=== PATIENT | female | born 1960 | race Caucasian/White ===

== ENCOUNTER → 2023-10-05 08:01 | Outpatient (REF) | payer BC, SELFPAY | LOC: HWWDC 08:01 | PROVIDERS: ATTENDING PHYSICIAN Obstetrics & Gynecology Gynecology; FAMILY PHYSICIAN Family Medicine | DX: Z12.31 Encounter for screening mammogram for malignant neoplasm of breast (principal) | CPT/HCPCS: 77063; 77067 ==

== ENCOUNTER 2024-02-28 06:22 | Day surgery (SDC) | payer BC, SELFPAY ==
[2024-02-20 08:38] VITALS: BMI 26.4
[2024-02-28] VITALS (11 sets, daily range): BP systolic 112–126; BP diastolic 61–76; BMI 26.4
[2024-02-28] MEDS: CELEBREX 200 MG PO (08:16)
[2024-02-28] MEDS: TYLENOL 1000 MG PO (08:16)
[2024-02-28] MEDS: NORMOSOL-R 1000 IV (08:17)
== END 2024-02-28 11:58 | disposition home or self-care (01) ==
LOC: SDS 06:22
PROVIDERS: ATTENDING PHYSICIAN Specialist; FAMILY PHYSICIAN Internal Medicine
DX: M75.112 Incomplete rotator cuff tear or rupture of left shoulder, not specified as traumatic (principal); M75.42 Impingement syndrome of left shoulder
CPT/HCPCS: 29827; 29823; 36415; 93005; C1713

== ENCOUNTER → 2024-08-31 12:56 | Outpatient (REF) | payer BC, SELFPAY | LOC: HWRCS 12:56 | PROVIDERS: ATTENDING PHYSICIAN Internal Medicine Cardiovascular Disease; FAMILY PHYSICIAN Internal Medicine | DX: E78.00 Pure hypercholesterolemia, unspecified (principal); Z92.21 Personal history of antineoplastic chemotherapy; Z92.3 Personal history of irradiation | CPT/HCPCS: 93306 ==

== ENCOUNTER → 2024-11-07 08:53 | Outpatient (REF) | payer BC, SELFPAY | LOC: HWWDC 08:53 | PROVIDERS: ATTENDING PHYSICIAN Obstetrics & Gynecology Gynecology; FAMILY PHYSICIAN Internal Medicine | DX: Z12.31 Encounter for screening mammogram for malignant neoplasm of breast (principal) | CPT/HCPCS: 77063; 77067 ==

== ENCOUNTER 2025-03-08 06:52 | Emergency (ER) | payer BC, SELFPAY ==
[2025-03-08 06:54] VITALS: BP 123/74
--- NOTE | 2025-03-08 07:16 | ED.GENMED ---
History of Present Illness
General
Chief Complaint: Abdominal Pain
Source: patient
Exam Limitations: none
Time Seen by Provider: 03/08/25 07:08
Nursing documentation reviewed up to this point in time: agreed with
History of Present Illness
History of Present Illness:
64-year-old female with history of kidney stones, remote history of Hodgkin's lymphoma presents for suprapubic pain. She rates the pain as a 4 out of 10 in severity, noting that it resembles very bad menstrual cramps. The onset of this acute pain
episode was around 2:30 AM. Earlier in the week, the patient noticed pink urine, which led her to suspect a urinary stone, given her history of similar episodes. She denies flank pain, nausea, or vomiting. Initially pain has was across lower abdomen
and into back but now only suprapubic area. The patient has taken 10 milligrams of oxycodone for pain relief, which has helped the pain.
Past History
Past History
ED Past Medical History: Cancer (Hodgkin's Lymphoma 20 yrs ago. Kidney stones)
ED Past Surgical History: Gynecological
Social History
Tobacco: Non-smoker
Alcohol: Occasional
Personal:
Living: with family
Employment: Retired
Review of Systems
Review of Systems
Allergies reviewed?: Yes
All Other Systems: ROS reviewed and negative except as documented in HPI and ROS
Constitutional: Denies fever or chills
ABD/GI: Reports abdominal pain; Denies nausea, vomiting or diarrhea
: Reports other (pink colored urine 2 days ago); Denies dysuria, frequency or difficulty voiding
Phy Exam
Physical Exam
Physical Exam:
GENERAL: No acute distress. A&Ox3.
CONSTITUTIONAL: Afebrile.
EYES: clear, conjunctivae normal
ENMT: moist mucus membranes
RESPIRATORY: Regular respirations, nonlabored, lungs clear.
CARDIOVASCULAR: Regular rate and rhythm, no murmurs, no rubs.
GI: Soft, nontender, normal BS
MUSCULOSKELETAL: Moves with ease. Well perfused.
SKIN: Warm, dry, pink
PSYCH: Normal mood and affect. Well kept, interactive and appropriate
NEUROLOGIC: Awake, alert and oriented. No focal neurological deficits
Course
Orders/Labs/Results
Orders:
Orders
03/08/25 08:02
Complete Blood Count/With Diff Urgent
03/08/25 08:04
Urinalysis Reflex To Culture Urgent
Date Specimen was Collected: 03/08/25
Time Specimen was Collected: 08:01
Urine Microscopic Reflex Cult Urgent
Urine Culture Urgent
LETA Source: U
Specimen Description:
Date Specimen was Collected: 03/08/25
Time Specimen was Collected: 08:01
03/08/25 09:09
CT Abd/pel Without Iv Or Oral Urgent
Comment:
Reason For Exam: lower mid abd pain, hx stones, u/a +RBC
03/08/25 09:37
Comprehensive Metabolic Panel Urgent
03/08/25 09:52
Tamsulosin [Flomax] 0.4 mg PO NOW STA
Abnormal Lab Results
03/08/25 03/08/25 03/08/25
08:02 08:04 09:37
MCH 32.7 H pg
(27.0-31.0)
Absolute Neuts (auto) 8.2 H 10^3/uL
(1.4-6.5)
Absolute Lymphs (auto) 1.0 L 10^3/uL
(1.2-3.4)
Neutrophils % 84.5 H %
(42.2-75.2)
Lymphocytes % 10.2 L %
(20.5-51.1)
BUN 26 H mg/dl
(7-17)
ALT 40 H U/L
(0-35)
Ur Occult Blood Reflex 4+ A
(Negative)
Leukocyte Esterase Rfl 1+ A
(Negative)
Urine RBC 60-70 A /HPF
(0-2)
Urine Bacteria (Reflex) Few A
(Negative)
Urine Albumin (Reflex) 2+ A
(Neg - Trace)
03/08/25 08:02
03/08/25 09:37
Vital Signs
Initial and Last Documented VS:
Initial Vital Signs
Temp Pulse Resp BP Pulse Ox
97.5 F 87 16 123/74 99
03/08/25 06:54 03/08/25 06:54 03/08/25 06:54 03/08/25 06:54 03/08/25 06:54
Last Documented Vital Signs
Temp Pulse Resp BP Pulse Ox
97.5 F 68 16 126/74 99
03/08/25 06:54 03/08/25 10:34 03/08/25 10:34 03/08/25 10:34 03/08/25 07:19
MDM/Problems Addressed
Differential Diagnosis Includes:
1. Nephrolithiasis (kidney stones)
2. Urinary tract infection
3. Gynecological issues (e.g., ovarian cysts)
4. Gastrointestinal conditions such as diverticulitis
5. Appendicitis
6. Pyelonephritis
7. Colitis
MDM/Problems Addressed:
64-year-old female with history of kidney stones, remote history of Hodgkin's lymphoma presents for suprapubic pain. She rates the pain as a 4 out of 10 in severity, noting that it resembles very bad menstrual cramps. The onset of this acute pain
episode was around 2:30 AM. Earlier in the week, the patient noticed pink urine, which led her to suspect a urinary stone, given her history of similar episodes. She denies flank pain, nausea, or vomiting. Initially pain has was across lower abdomen
and into back but now only suprapubic area. The patient has taken 10 milligrams of oxycodone for pain relief, which has helped the pain.
Afebrile, NAD
9:45 a.m.
CBC with no clinically significant abnormality
CMP: Hemolyzed twice, result pending
U/A: No infection
CT abdomen pelvis radiology report read: 1. Mild to moderate LEFT hydronephrosis and hydroureter secondary to a 6.2 mm calculus within the distal left ureter. Mild associated fat stranding about the left kidney and left renal pelvis.
2. Multiple additional left-sided intrarenal calculi with suggestion of medullary nephrocalcinosis. Couple of small stones within the right kidney.
In to re evaluate, states she is suddenly feeling much better after urinating (into toilet, did not strain urine)
Consulted Dr. Monroe who requests Flomax, f/u with Dr. Mcgowan in 1-2 weeks
Pt comfortable with this plan.
Rx ro Flomax and Toradol sent to her pharmacy
*Pulse Oximetry
SaO2: 99
Oxygen Mode of Delivery: Room air
Patient hypoxic: not evaluated
*Critical Care Note
Total Time (30-74mins, 75-104mins- exclusive of procedures): Not Applicable
ED Attending Note
-
Portions of this chart may have been created with voice recognition software.� Occasional wrong word or��sound alike� substitutions may have occurred due to the inherent limitations of voice recognition software.
Discharge Plan
Departure
Patient Disposition: Home (Routine Discharge)
Date of Disposition: 03/08/25
Time of Disposition: 10:15
Patient with high blood pressure during this ER visit?: No
Condition: Good
Discharge Problem:
Calculus of distal left ureter
Instructions: Kidney Stones (DC)
Prescriptions:
New
tamsulosin [Flomax] 0.4 mg capsule
0.4 mg PO DAILY Qty: 4 0RF
ketorolac 10 mg tablet
10 mg PO Q8H PRN (Reason: Pain) 5 Days Qty: 20 0RF
No Action
acetaminophen 500 mg Tablet
1,000 mg PO Q6H PRN (Reason: pain)
hydrochlorothiazide 25 mg Tablet
25 mg PO DAILY
Referrals:
Casper Mcgowan Jr., MD [Active, Urology] - Call in 1-3 days for appt
Zo Green DO [Family Provider, Family Practice]
Activity Restrictions/Additional Instructions:
As we discussed, call Dr. Mcgowan's office to make an appointment for follow-up for 1 to 2 weeks from now.
Strain your urine and if you do catch a stone, take it with you to your appoint
I sent a prescription to your pharmacy for Flomax to start tomorrow as you were given a dose here today
I sent a prescription to your pharmacy for Toradol to use as needed for pain
Return here immediately for worsening pain, fever or chills, vomiting or feeling sicker in any way
Interventions
Interventions:
*Risk Screen - Suicide Last Done: 03/08/25 06:54
*General Assessment Last Done: 03/08/25 08:23
*Neglect/Abuse Screening Last Done: 03/08/25 06:54
*ED- Fall Risk Assessment Last Done: 03/08/25 08:23
*ED COVID-19 Vaccine History Last Done: 03/08/25 08:23
*Nursing Disposition Last Done: 03/08/25 10:35
MR-Jwrqyk-Cacrngcode Assessment Last Done: 03/08/25 08:23
Discharge Date and Time
Discharge Date/Time: 03/08/25 10:35
Print Language: CITIZEN OF [place]
[2025-03-08 08:18] LABS: Hematocrit 41.1 % (37.0-47.0); Hemoglobin 14.0 g/dL (12.0-16.0); Mean Corp Hgb Conc. 34.1 g/dL (33.0-37.0); Mean Corpuscular Volume 96.0 fL (81.0-99.0); Nucleated Red Blood Cells % 0 %; Platelet Count 215 10^3/uL (130-400); Red Cell Dist. Width 11.9 % (11.5-14.5)
[2025-03-08 08:18] LABS: Urine Character Clear (Clear)
[2025-03-08 08:29] LABS: Urine Red Blood Cell 60-70 /HPF (0-2); Urine Squamous Cell 0-2 /LPF (Few)
[2025-03-08 10:01] LABS: ALT (SGPT) 40 U/L (0-35); AST (SGOT) 30 U/L (14-36); Albumin 4.6 g/dl (3.5-5.0); Alkaline Phosphatase 76 U/L (38-126); Blood Urea Nitrogen 26 mg/dl (7-17); Calcium 9.8 mg/dl (8.4-10.2); Carbon Dioxide 30 mmol/L (22-30); Chloride 105 mmol/L (98-107); Glucose 94 mg/dl (70-99); Potassium 4.0 mmol/L (3.5-5.1); Sodium 139 mmol/L (135-145); Total Protein 7.3 g/dl (6.3-8.2); eGFR > 60.00
[2025-03-08] MEDS: FLOMAX 0.4 MG PO (10:19)
[2025-03-08 10:34] VITALS: BP 126/74
== END 2025-03-08 10:35 | disposition home or self-care (01) ==
LOC: EMR 06:52
PROVIDERS: Registered Nurse; EMERGENCY PHYSICIAN Emergency Medicine; FAMILY PHYSICIAN Internal Medicine
DX: N13.2 Hydronephrosis with renal and ureteral calculous obstruction (principal); Z85.71 Personal history of Hodgkin lymphoma; Z87.442 Personal history of urinary calculi
CPT/HCPCS: 99284; 74176; 80053; 81003; 81015; 85025; 87086